=== PATIENT | female | born 1955 | race Caucasian/White ===

== ENCOUNTER → 2018-01-08 | Outpatient (CLI) | payer OTHER | END | disposition home or self-care (01) | LOC: C.PATHSPEC 19:00 | PROVIDERS: ATTEND Podiatrist Foot & Ankle Surgery | DX: B07.9 Viral wart, unspecified (principal) ==

== ENCOUNTER → 2018-02-12 | Outpatient (CLI) | payer OTHER ==
[2018-02-12 12:31] LABS: BASO % 0.7 %; BASO ABS # 0.03 K/uL (0-0.2); EOS % 3.6 %; EOS ABS # 0.15 K/uL (0-0.5); HEMATOCRIT 43.1 % (37-47); HEMOGLOBIN 14.1 g/dL (12.0-16.0); IG# 0.01 K/uL (0.00-0.02); LYMPH ABS # 1.44 K/uL (1.2-3.4); MEAN CELL VOLUME 94.7 fL (80-100); MEAN CORPUSCULAR HGB CONC 32.7 g/dl (32-36); MEAN PLATELET VOLUME 10.1 fL (7.4-10.4); MONO % 9.2 %; MONO ABS # 0.38 K/uL (0.11-0.59); NEUT % 51.3 %; NEUT ABS # 2.11 K/uL (1.4-6.5); PLATELET COUNT 176 K/uL (130-400); RED CELL DISTRIBUTION WIDTH CV 12.8 % (11.5-14.5); RED CELL DISTRIBUTION WIDTH SD 44.3 fL (36.4-46.3); WHITE BLOOD COUNT 4.12 K/uL (4.8-10.8)
--- NOTE | 2018-02-24 12:02 | CODING QUERY NO DIAGNOSIS ---
TREATMENT RENDERED WITHOUT A DIAGNOSIS 56 To promote full compliance with coding requirements relating to patient care, physician participation is requested in all cases of printing plate clerk uncertainty. Please assist us with providing a diagnosis/symptom for the test(s) below: A diagnosis/symptom was not documented on your Order. A valid diagnosis/symptom is required to bill all insurances. Please remember that we are unable to code a diagnosis of rule out, probable, possible, questionable, or suspected. DOS 02/12/18 Tests that require a diagnosis: * CBC W/AUTO DIFF DIAGNOSIS: * ESR DIAGNOSIS: * URIC ACID DIAGNOSIS: * ON YOUR ORDER YOU HAVE DX CODE M25.77, THIS IS AN INVALID CODE, PLEASE ADD CORRECT DX CODE Provider Signature: Date: Thank you Giovanna Friedman [facility] Information Management Once completed, please kindly fax back to [phone] For questions please call [phone]
== END | disposition home or self-care (01) ==
LOC: C.LAB 11:33
PROVIDERS: ATTEND Podiatrist Foot & Ankle Surgery
DX: R26.2 Difficulty in walking, not elsewhere classified (principal); M79.661 Pain in right lower leg; M79.671 Pain in right foot

== ENCOUNTER → 2018-03-03 | Outpatient (CLI) | payer OTHER ==
[2018-03-03 12:51] LABS: BLOOD UREA NITROGEN 18 mg/dl (7-18); CREATININE 0.74 mg/dl (0.60-1.20)
--- NOTE | 2018-03-13 07:34 | CODING QUERY NO DIAGNOSIS ---
TREATMENT RENDERED WITHOUT A DIAGNOSIS 56 To promote full compliance with coding requirements relating to patient care, physician participation is requested in all cases of blasting helper uncertainty. Please assist us with providing a diagnosis/symptom for the test(s) below: A diagnosis/symptom was not documented on your Order. A valid diagnosis/symptom is required to bill all insurances. Please remember that we are unable to code a diagnosis of rule out, probable, possible, questionable, or suspected. DOS 03/03/18 Tests that require a diagnosis: * BLOOD UREA NITROGEN DIAGNOSIS: * CREATININE DIAGNOSIS: Provider Signature: Date: Thank you Giovanna Friedman [employer] Information Management Once completed, please kindly fax back to [phone] For questions please call [phone]
== END | disposition home or self-care (01) ==
LOC: C.LAB 11:43
PROVIDERS: ATTEND Podiatrist Foot & Ankle Surgery
DX: M79.661 Pain in right lower leg (principal); R26.2 Difficulty in walking, not elsewhere classified; M79.671 Pain in right foot; M25.774 Osteophyte, right foot

== ENCOUNTER → 2018-03-06 | Outpatient (CLI) | payer OTHER ==
[~2018-03-06] MED LIST: GADAVIST IV PRN
--- NOTE | 2018-03-06 12:53 | DIAGNOSTIC IMAGING REPORT ---
R LOWER EXT JOINT COMBO CLINICAL HISTORY: 62 years-old Female with RIGHT ANKLE PAIN. Acute right ankle pain and swelling for 2 months COMPARISON: None. TECHNIQUE: Multiplanar, multi sequence MRI of the right ankle was performed with and without the use of 9.3 mL Gadavist. FINDINGS: LATERAL LIGAMENT COMPLEX: The anterior talofibular ligament, calcaneofibular ligament and posterior talofibular ligaments are intact. SYNDESMOTIC LIGAMENTS: The anterior-inferior tibiofibular ligament, interosseous membrane and posterior-inferior tibiofibular ligaments are intact. DELTOID LIGAMENT COMPLEX: The superficial and deep components of the deltoid ligament are intact. ANTERIOR TENDONS: The tibialis anterior, extensor hallucis longus and extensor digitorum longus tendons are normal in position, morphology and signal. LATERAL TENDONS: Skin marker is placed superficially to the lateral tendons. There is trace tenosynovitis of the posterior malleolus and inframalleolar peroneus longus and brevis tendons which appear intact. There is mild tendinosis of the peroneus longus. MEDIAL TENDONS: The posterior tibialis, flexor digitorum longus and flexor hallucis longus tendons are intact. PLANTAR FASCIA: Moderate sized plantar calcaneal enthesophyte about the calcaneus. There is mild thickening involving the medial and lateral bundles of the plantar fascia with mild adjacent edema best seen on the sagittal STIR images. There is no evidence of acute plantar fascial tear or plantar fascial nodules. ACHILLES TENDON: The Achilles tendon is normal in position, morphology and signal. No associated bursitis. SINUS TARSI: There is normal fat signal within the sinus tarsi. The interosseous and cervical ligaments are normal. The navicular-calcaneal (spring) ligament is without acute abnormality. TARSAL TUNNEL: There are no obstructing lesions within the tarsal tunnel. BONE MARROW: Bone marrow is normal in signal without evidence of fracture, or marrow occupying lesion. Minimal subcortical cystic change/bone marrow edema involves the distal cuboid and inferior process calcaneus, likely degenerative. SOFT TISSUES: Mild subcutaneous edema about the lateral ankle superficial to the peroneal tendons. No abnormal enhancement. IMPRESSION: 1. Nonspecific mild subcutaneous edema about the lateral ankle superficial to the peroneal tendons. Additionally, there is mild peroneus longus tendinosis with trace tenosynovitis of the peroneus longus and brevis tendons. 2. Mild acute on chronic plantar fasciitis. 3. No abnormal enhancement. 4. No acute fracture or osteochondral defect. The above report was generated using voice recognition software. It may contain grammatical, syntax or spelling errors. Electronically signed by: Nicolas Jimenes M.D. 03/06/2018 12:51 PM Dictated Date/Time: 03/06/2018 12:41 PM
== END | disposition home or self-care (01) ==
LOC: C.MRI 10:48
PROVIDERS: ATTEND Podiatrist Foot & Ankle Surgery
DX: M25.571 Pain in right ankle and joints of right foot (principal)